=== PATIENT | male | born 1960 | race Caucasian/White ===

== ENCOUNTER 2021-02-27 10:53 | Emergency (ER) | payer OTHER, SELFPAY ==
--- NOTE | 2021-02-27 11:00 | DI.RAD_ITS ---
Exam(s) XR HAND RT COMPLETE EXAM: XR HAND RT COMPLETE CLINICAL HISTORY: ulnar pain along hand and 4 5 digits. TECHNIQUE: 2D digital imaging was performed. COMPARISON: No exams were available for comparison FINDINGS: BONES: No acute fracture is present. No bony destructive lesion is seen. There is a well corticated t iny osseous density at the ulnar aspect of the head of the middle phalanx of the right ring finger. This appears to represent of prior remote injury. JOINTS: No dislocation present. SOFT TISSUE: Normal. IMPRESSION: No acute abnormality. DATA REPOSITORY: RADIATION DOSE DELIVERED:
--- NOTE | 2021-02-27 11:03 | ED.GENADUL_ITS ---
Discharge Plan Disposition Patient Disposition: HOME Condition: Good Discharge Details Clinical Impression: Contusion of hand Primary Care Provider: Unknown,Unknown ED Provider: Nilda Sosa Discharge Instructions Instructions: Contusion in Adults (ED) Additional Instructions: Encourage rest, ice, elevation. Tylenol as needed for discomfort. You may c ontinue with the amparo taping to help with discomfort and splint the fingers. If you develop new or worsening symptoms please seek care urgently once again. Otherwise, please follow-up with your primary care in the next 1 to 2 weeks for reevaluation Stand Alone Forms: Work Release Medical Decision Making Patient is a pleasant 60-year-old [id number] male presenting today with chief complaint of right hand injury. He reports that last night he tried and fell landing on a flexed right hand. Describes this as being in the position of the fist and landing directly on the ulnar side of the hand. He states that he has suffered a boxer's fracture historically. He denies other injuries from the incident. He denies any numbness or tingling. Today noted swelling over the fourth and fifth MCP joints extending into the fifth digit. Pain along the ulnar side of the hand. On exam, patient has ecchymosis and swelling to the fifth digit as well as the fourth and fifth MCP joints although no deformity or pain with palpation is e licited over these joints. I have appreciate any palpable bony abnormality. He does have limited flexion of the fifth digit but this seems to be more from swelling. He is able to flex and extend against resistance. Will give Tylenol to help discomfort. Will obtain x-ray to evaluate for any possible fracture. FINDINGS: Bones/joints: No acute fracture or dislocation. Scattered mild degenerative changes in multiple joints. Well corticated ossicle along the ulnar aspect of the 4th digit mid phalanx, may represent sequelae remote avulsion injury. Soft tissues: No focal soft tissue swelling. IMPRESSION: No acute findings . Discussed findings with the patient and his significant other. Amparo taping was applied by myself. Encourage rest, ice, elevation. Tylenol as needed for discomfort. Return precautions were discussed. I advised follow-up with primary care in the next 1 to 2 weeks if pain persist. Work note given at patient's request. All questions concerns were addressed and he is in agreement this plan. HPI General Mode of arrival: ambulatory . Date/Time Provider Initiated Documentation: 02/27/21 11:02 . Limitations to Documentation: no limitations . Information obtained by: patient, family and RN notes reviewed . History of Present Illness 60 year old M presents to the emergency department with the chief complaint of right hand pain, described as moderate, with intensity rated at 6. Quality is described as aching, and is localized to the right and upper extremity. Patient reports no radiation. Patient started experiencing this day(s) (1) and it has been constant. Immobilization improves symptom(s), Movement worsens symptoms . Patient notes no other symptoms.. Patient did receive the following treatments prior to arrival, none Related Data Allergies Allergy/AdvReac Type Severity Reaction Status Date / Time Penicillins Allergy Unverified 02/27/21 11:13 Review of Systems Constitutional Constitutional: Reports as per HPI, Denies chills, Denies fever(s), Denies headache(s) and Denies weakness ENT Ears, Nose, Mouth, and Throat: Denies headache(s) Cardiovascular Cardiovascular: Reports as per HPI Respiratory Respiratory: Reports as per HPI and Denies cough Musculoskeletal Musculoskeletal: Reports as per HPI and Denies tingling Integumentary/Breasts Skin/Breast: Reports as per HPI, Denies rash and Denies wounds Neurologic Neurologic: Reports as per HPI, Denies headache(s), Denies tingling, Denies paresthesias and Denies weakness [facility] Social History Smoking/Tobacco Use Status: Current every day Tobacco Type: cigarettes Smoking risk assessment performed?: Yes Alcohol Intake: never Drug use: Daily Substance use type: marijuana Do you feel safe at home: Yes Do you feel safe in your relationship?: Yes Exam Const General: cooperative, healthy appearing, comfortable, no acute distress, well developed and well groomed Nutritional Appearance: average body habitus and well nourished Orientation: alert and awake Resp Effort & Inspection: normal respiratory effort, able to speak in complete sentences and no respiratory distress Cardio Rate: regular rate Rhythm: regular rhythm Skin General skin exam: ecchymosis Neuro General: patient alert and patient awake Cognition: normal cognition Speech: speech normal Gait: normal gait Motor: muscle tone normal throughout Sensory Exam: no sensory deficits noted Extrem Hand/finger images: 1. Area of swelling, ecchymosis and tenderness. Maximal swelling circumfrencially around 5th digit. No erythema, warmth. No evidence of ligamentous injury. 2+ distal pulses. Sensation is intact. Intact capillary refill. No pain over the radial side of the hand or wrist. No pain over the anatomical snuffbox or pain with axial thumb loading. Psych Appearance: grossly normal and well kempt Mental Status: mental status grossly normal Speech and Movement: speech and movement normal
[2021-02-27 11:09] VITALS: BP 130/79; PULSE 98; TEMP 36.7; O2SAT 98
[2021-02-27] MEDS: Acetaminophen 325 MG TAB 650 MG PO (11:15)
--- NOTE | 2021-02-27 11:42 | DI.VRAD_ITS ---
PROCEDURE INFORMATION: Exam: XR Right Hand Exam date and time: 02/27/2021 11:10 AM Age: 60 years old Clinical indication: Other: Ulnar pain along hand and 4\T\5 digits TECHNIQUE: Imaging protocol: XR Right hand. Views: 3 or more views. COMPARISON: No relevant prior studies available. FINDINGS: Bones/joints: No acute fracture or dislocation. Scattered mild degenerative changes in multiple joints. Well corticated ossicle along the ulnar aspect of the 4th digit mid phalanx, may represent sequelae remote avulsion injury. Soft tissues: No focal soft tissue swelling. IMPRESSION: No acute findings. Well corticated ossicle along the ulnar aspect of the 4th digit mid phalanx, may represent sequelae remote avulsion injury. Dictated and Authenticated by: Kennedy Vaz MD. Ordering:CHESTER Munguia MD
== END 2021-02-27 12:29 | disposition home or self-care (01) ==
PROVIDERS: Emergency Provider Physician Assistant
DX: S60.221A Contusion of right hand, initial encounter (principal); W18.39XA Other fall on same level, initial encounter
CPT/HCPCS: 99283; 73130

== ENCOUNTER 2024-04-23 09:53 | Emergency (ER) | payer OTHER, SELFPAY ==
[2024-04-23 10:12] VITALS: BP 154/75; PULSE 80; RESP 16; TEMP 36.5; O2SAT 98
--- NOTE | 2024-04-23 10:15 | DI.RAD_ITS ---
Exam(s) XR HAND RT COMPLETE EXAM: XR HAND RT COMPLETE CLINICAL HISTORY: R hand pain. TECHNIQUE: 2D digital imaging was performed. COMPARISON: CR,XR XR HAND RT COMPLETE from 02/27/2021 FINDINGS: 3 views There is soft tissue swelling over the dorsal aspect of the right hand but no evidence acute fracture nor dislocation. Subtle linear density in the head of the 5th metacarpal is unchanged from January 31. This may be a prior healed fracture site. There are no obvious acute fractures evident. Incidentally noted is a small osteophytic density off the medial aspect of the head of the middle pha lanx of the 4th-ring finger, unchanged from 2020. IMPRESSION: Findings as above but no acute osseous findings in the right hand. Soft tissue swelling noted DATA REPOSITORY: RADIATION DOSE DELIVERED:
--- NOTE | 2024-04-23 10:17 | ED.GENADUL_ITS ---
Discharge Plan Disposition Patient Disposition: Home Condition: Stable Discharge Details Clinical Impression: Contusion of right hand Primary Care Provider: Unknown,Unknown ED Provider: Anirudh Horton Home Meds and New Rx's Prescriptions: Continued lisinopril 20 mg tablet 20 mg PO DAILY Statin 1 tab PO DAILY Patient Comments: Pt states he takes a statin unsure which one; unsure of dosage. ML 04/23/24 Discharge Instructions Instructions: Hand pain, Minor Contusion ED Additional Instructions: You were seen in the emergency department for the contusion/sprain of your right hand, I am providing you with a thumb spica splint, please rest, ice, compress and elevate often over the next few days. Please use therapeutic dosing of Tylenol (acetamenophen) & Advil (ibuprofen) in an alternating fashion as follows: Take 1000mg of Tylenol every 6 hours without missing doses- that is 4 times per day. Group Home in between the Tylenol dosings, take 400-600mg of Advil also on a 6 hour schedule, that is also 4 times per day. The daily maximum dosing of Tylenol is 4000mg, and the daily maximum dosing of Advil is 2400mg. This is safe to do for weeks. Please note that some common cold medications & prescription pain medications may contain acetamenophen and you need to read OTC drug labels and factor that in to maximum daily dosings. There was no fracture seen on your x-ray, please follow-up with orthopedics for persistent pain lasting longer than 2 weeks for possible repeat imaging, please return to the emergency department for any signs of neurovascular compromise to the hand. HPI General Date/Time Provider Initiated Documentation: 04/23/24 10:17 . HPI Narrative: 63 year-old male presents to ED today by POV/ambulating with a chief complaint of R hand bruising/swelling - after a board kicked up on him while operating a table saw with onset yesterday. Quality described as pain and bruising focal to the right thumb, patient is right-hand dominant, no radiation to complete numbness, lacerations or breaks in the skin, endorses pain with movement, endorses some tingling, has limited range of motion to pain. Severity is described as moderate. Palliating factors include nothing specific attempted. Provoking factors include nothing specific. Patient not anticoagulated. Related Data Home Medications ?Medication ?Instructions ?Recorded ?Confirmed Statin 1 tab PO DAILY 10/23/24 10/23/24 lisinopril 20 mg tablet 20 mg PO DAILY 04/23/24 04/23/24 Allergies Allergy/AdvReac Type Severity Reaction Status Date / Time Penicillins Allergy rash Unverified 04/23/24 10:15 General Stated Complaint: Orthopedic CATA: 3 Review of Systems All systems reviewed & are unremarkable except as noted in HPI and below Exam Narrative Exam Narrative: GENERAL APPEARANCE: Well-nourished, non-toxic, awake and alert, atraumatic, no acute distress. SKIN: Warm, pink, dry, intact, without rashes/lesions/ulcerations. HEAD: Normocephalic, atraumatic, normal hair distribution for gender/age. EYES: Normal conjunctiva, no exudates on lids/lashes. ENT: Nares patent, no circumoral cyanosis, no facial swelling NECK: Supple, trachea midline, painless cervical ROM. LUNGS/CHEST: Non-labored respirations, normal A/P diameter, symmetrical expansion, no chest wall deformity HEART (CV/PV): Regular rate, R radial pulse 2+, no peripheral edema, no JVD. ABDOMEN: Soft, non-distended, no guarding. MSK: Normal ROM, no swelling/deformity to bilateral UEs or LEs, moving all extremities without weakness, no cyanosis, spine midline without tenderness, normal curvature, diffuse swelling and ecchymosis to the right hand, range of motion limited to pain, positive anatomical snuffbox tenderness, brisk capillary refill in all fingers, no overt crepitus, no wrist crepitus or tenderness NEURO: Mental Status AAOx4 - alert to person, place, time, events No facial droop, no forehead involvement. Motor: No focal weakness - strength 5/5 in bilateral UEs and LEs, proximal and distal, symmetric. Sensory: sensation intact to light touch globally. Gait normal: patient ambulated without ataxia into ED room. PSYCH: euthymic, cooperative, pleasant, appropriate speech Course Vital Signs Vital signs: Vital Signs Temperature 36.5 C 04/23/24 10:12 Pulse 80 04/23/24 10:12 Respiratory Rate 16 04/23/24 10:12 Blood Pressure 154/75 H 04/23/24 10:12 Pulse Oximetry 98 04/23/24 10:12 Temperature 36.5 C 04/23/24 10:12 Temperature Source Oral 04/23/24 10:12 Pulse 80 04/23/24 10:12 Respiratory Rate 16 04/23/24 10:12 Blood Pressure 154/75 H 04/23/24 10:12 Blood Pressure Position Sitting 04/23/24 10:12 Pulse Oximetry 98 04/23/24 10:12 Oxygen Delivery Method Room Air 04/23/24 10:12 Oxygen Flow Rate 0 04/23/24 10:12 Pain Level 7 04/23/24 10:12 Medical Decision Making This dictation utilizes [id number] dictation software and may contain unedited grammatical errors. 63 year-old male presents to ED today by POV/ambulating with a chief complaint of R hand bruising/swelling - after a board kicked up on him while operating a table saw with onset yesterday. Quality described as pain and bruising focal to the right thumb, patient is right-hand dominant, no radiation to complete numbness, lacerations or breaks in the skin, endorses pain with movement, endorses some tingling, has limited range of motion to pain. Severity is described as moderate. Palliating factors include nothing specific attempted. Provoking factors include nothing specific. Patients' medical history: Noncontributory. Family and social history: Noncontributory. Pertinent exam findings / vital signs include diffuse bruising to the right hand, anatomical snuffbox tenderness, sensation brisk capillary refill intact, no wrist tenderness or crepitus. Differential / pathologies of concern include fracture, contusion, sprain/strain. Diagnostic studies of: -XR R hand-no acute fracture seen. Interventions of: -Provided thumb spica brace. ED Course/Assessment/Plan: 63-year-old male presents with right hand pain after a board kicked up on him on a table saw, he has no breaks in the skin has diffuse ecchymosis and mild swelling with mild limited range of motion to pain, there is no fracture seen on his x-ray, I did provide a thumb spica brace and recommend he undergo RICE therapy and therapeutic dosing Tylenol and ibuprofen, follow-up with orthopedics for persistent pain lasting longer than 2 weeks, return to the ED at once for any signs of neurovascular compromise. Findings not consistent with fracture or neurovascular compromise. Disposition of contusion of right hand. Patient verbalized understanding of the plan and return to ED criteria and engaged in shared decision making. Medical Records Medical records reviewed: Yes I reviewed the patient's medical records. Imaging Data Radiologic Study: Attestation: I personally reviewed and interpreted this imaging study as follows: Imaging: X-Ray Radiologist's impression: EXAM: XR HAND RT COMPLETE CLINICAL HISTORY: R hand pain. TECHNIQUE: 2D digital imaging was performed. COMPARISON: CR,XR XR HAND RT COMPLETE from 02/27/2021 FINDINGS: 3 views There is soft tissue swelling over the dorsal aspect of the right hand but no evidence acute fracture nor dislocation. Subtle linear density in the head of the 5th metacarpal is unchanged from January 2021. This may be a prior healed fracture site. There are no obvious acute fractures evident. Incidentally noted is a small osteophytic density off the medial aspect of the head of the middle phalanx of the 4th-ring finger, unchanged from 2020. IMPRESSION: Findings as above but no acute osseous findings in the right hand. Soft tissue swelling noted Quality:SDOH Health Related Social Needs: No Data to Display PFSH All Active Problems (Updated 04/23/24 @ 11:40 by EMELI Lopez) Contusion of right hand (Acute) Contusion of hand (Acute) Social History Smoking/Tobacco Use Status: Current every day Tobacco Type: cigarettes Smoking risk assessment performed?: Yes Alcohol Intake: never Drug use: Daily Substance use type: marijuana Do you feel safe at home: Yes Do you feel safe in your relationship?: Yes
[2024-04-23 11:54] VITALS: BP 154/75; PULSE 80; RESP 16; TEMP 36.5; O2SAT 98
== END 2024-04-23 12:06 | disposition home or self-care (01) ==
PROVIDERS: Emergency Provider Physician Assistant
DX: S60.221A Contusion of right hand, initial encounter (principal); F17.210 Nicotine dependence, cigarettes, uncomplicated; W22.8XXA Striking against or struck by other objects, initial encounter; Y93.89 Activity, other specified; Y92.89 Other specified places as the place of occurrence of the external cause
CPT/HCPCS: 99283; 73130

== ENCOUNTER 2024-11-05 09:48 | Outpatient (REF) | payer OTHER, SELFPAY ==
[2024-11-05 15:53] LABS: HCT 40.8 % (40.0-50.0); HGB 13.7 g/dL (13.5-17.5); MCH 31.2 pg (27.0-33.0); MCHC 33.6 % (32.0-36.0); MCV 93 fL (80-95); MPV 11.5 fL (8.0-11.0); Platelet Count 235 10^3/uL (130-400); RBC 4.39 10^6/uL (4.36-5.78); RDW 12.3 % (11.8-14.1); RDW-SD 42.5 fL; WBC 9.42 10^3/uL (4.4-10.8)
[2024-11-05 16:14] LABS: Hemoglobin A1C 5.8 % (<5.7)
[2024-11-05 16:44] LABS: ALT 36 U/L (16-63); AST 32 U/L (15-37); Albumin 4.3 g/dL (3.4-5.0); Alkaline Phosphatase 89 U/L (46-116); Anion Gap 5.3 mmol/L (3-11); BUN 15 mg/dL (7-18); Bilirubin, Total 0.8 mg/dL (0.2-1.0); CO2 29.7 mmol/L (21.0-32.0); CREATININE 0.9 mg/dL (0.70-1.30); Calcium 9.8 mg/dL (8.5-10.1); Calculated LDL 54 mg/dL (<100); Chloride 99 mmol/L (98-107); Cholesterol 129 mg/dL (<200); Estimated GFR 96.57 (mL/min/1.73m2); Glucose 94 mg/dL (74-106); HDL Cholesterol 65 mg/dL (>or=40); Sodium 134 mmol/L (136-145); TSH (W/Ref FT4) 0.67 uIU/mL (0.36-3.74); Total Protein 7.2 g/dL (6.4-8.2); Triglyceride 50 mg/dL (<150)
== END 2024-11-05 09:49 | disposition home or self-care (01) ==
LOC: NCHCN 09:48
PROVIDERS: Visit Provider Family Medicine
DX: I10 Essential (primary) hypertension (principal); E78.5 Hyperlipidemia, unspecified; I25.2 Old myocardial infarction
CPT/HCPCS: 80053; 80061; 85027; 83036; 84443